=== PATIENT | male | born 1970 | race Caucasian/White ===

== ENCOUNTER 2024-11-07 10:52 | Day surgery (SDC) | payer OTHER ==
[~2024-11-07] VITALS: Ht 193 cm; Wt 174.3 kg
[2024-11-07] MEDS ORDERED: MIDAZolam 1mg/ml 10ml vial IV ONE (11:30)
[2024-11-07] MEDS ORDERED: fentaNYL/PF 50MCG/1 ML 2ML syringe IV ONE (11:30)
[2024-11-07] MEDS ORDERED: normal saline 1000ml 1,000 ML IV SCH (11:30)
[2024-11-07] MEDS ORDERED: APIX5TAB3 PO ×2 (11:32→11:33)
== END 2024-11-07 11:40 | disposition home or self-care (01) ==
LOC: SSTAY O 10:52
PROVIDERS: ATTEND Student in an Organized Health Care Education/Training Program
DX: I48.0 Paroxysmal atrial fibrillation (principal); I42.9 Cardiomyopathy, unspecified; N18.9 Chronic kidney disease, unspecified; F32.A Depression, unspecified; G47.33 Obstructive sleep apnea (adult) (pediatric); Z79.82 Long term (current) use of aspirin; Z86.73 Personal history of transient ischemic attack (TIA), and cerebral infarction without residual deficits; E11.22 Type 2 diabetes mellitus with diabetic chronic kidney disease; I12.9 Hypertensive chronic kidney disease with stage 1 through stage 4 chronic kidney disease, or unspecified chronic kidney disease; Z53.8 Procedure and treatment not carried out for other reasons
CPT/HCPCS: J7030

== ENCOUNTER 2025-01-09 09:26 | Day surgery (SDC) | payer OTHER ==
[2025-01-08 16:52] LABS: BASOPHILS # (AUTO) 0.1 X10'3 (0-0.2); BASOPHILS % (AUTO) 1.3 % (0-1); EOSINOPHILS # (AUTO) 0.4 X10'3 (0-0.9); EOSINOPHILS % (AUTO) 3.6 % (0-6); HEMATOCRIT 36.1 % (42.0-52.0); LYMPHOCYTES # (AUTO) 1.2 X10'3 (1.1-4.8); LYMPHOCYTES % (AUTO) 11.6 % (21-51); MEAN CORPUSCULAR HEMOGLOBIN 26.8 PG (27.0-31.0); MEAN CORPUSCULAR HGB CONC 33.2 g/dL (33.0-36.5); MEAN CORPUSCULAR VOLUME 80.6 FL (78-98); MEAN PLATELET VOLUME 7.5 FL (7.4-10.4); MONOCYTES # (AUTO) 0.6 X10'3 (0-0.9); NEUTROPHILS # (AUTO) 8.3 X10'3 (1.8-7.7); NEUTROPHILS % (AUTO) 77.5 % (42-75); PLATELET COUNT 192 X10'3 (140-440); RED BLOOD COUNT 4.48 X10'6 (4.70-6.10); RED CELL DISTRIBUTION WIDTH 18.6 % (11.5-14.5); WHITE BLOOD COUNT 10.7 X10'3 (4.5-11.0)
[2025-01-08 17:05] LABS: APTT 29 SECONDS (22-32); INR 1.1 INR
[2025-01-08 17:17] LABS: ALBUMIN 3.7 G/DL (3.4-5.0); ANION GAP 10 (8-16); BLOOD UREA NITROGEN 36 MG/DL (7-18); BUN/CREATININE RATIO 5.9 (10.0-20.0); CALCIUM 8.3 MG/DL (8.5-10.1); CHLORIDE 98 MMOL/L (99-107); CHOL/HDL RATIO 5.1 (0.00-4.99); CHOLESTEROL 162 MG/DL (0-200); CREATININE 6.11 MG/DL (0.60-1.10); GLUCOSE 136 MG/DL (70-104); HDL CHOLESTEROL 32 MG/DL (35-60); LDL CHOLESTEROL 89 MG/DL (50-100); POTASSIUM 3.3 MMOL/L (3.5-5.1); SODIUM 138 MMOL/L (135-145); TOTAL CARBON DIOXIDE 29.9 MMOL/L (24-32); TRIGLYCERIDES 337 MG/DL (20-135); eGFR 10 ML/MIN
[2025-01-08 17:45] LABS: ANISOCYTOSIS 2+; PLATELET ESTIMATE NORMAL
[2025-01-08 17:46] LABS: POIKILOCYTOSIS FEW; TEAR DROP CELLS FEW
[2025-01-09] VITALS (13 sets, daily range): BP systolic 106–134; BP diastolic 60–83; PULSE 71–103; RESP 14–20; TEMP 97.9; O2SAT 92–98
[~2025-01-09] VITALS: Ht 193 cm; Wt 169.6 kg
[~2025-01-09 09:26] MED LIST: APIX5TAB3 PO
[2025-01-09] MEDS ORDERED: PREG25CA19 PO (10:07)
[2025-01-09] MEDS ORDERED: SEVE800T28 PO (10:07)
[2025-01-09] MEDS: normal saline 1000ml 1,000 ML IV SCH (10:31)
[2025-01-09] MEDS: potassium Cl 20 mEq SR tablet PO STA (10:31)
[2025-01-09] MEDS: fentaNYL/PF 50MCG/1 ML 2ML syringe IV ONE (12:55)
[2025-01-09] MEDS: MIDAZolam 1mg/ml 10ml vial IV ONE (12:55)
--- NOTE | 2025-01-15 19:45 | CARDIOLOGY REPORT ---
DATE OF SERVICE: 01/09/2025 DICTATING PHYSICIAN: Ramin Saavedra MD CARDIOVERSION DATE OF STUDY: 01/09/2025 NAME OF STUDY: Electrical cardioversion. PROCEDURE: The patient was brought to cardiac short stay where he was prepped in the usual manner. After gradual increments of Versed and fentanyl, and conscious sedation was obtained, the patient was cardioverted. The patient remained clinically and hemodynamically stable throughout the procedure. IMPRESSION: Successful electrical cardioversion to normal sinus rhythm without complication. Ramin Saavedra MD TID: [id number] RECEIPT: [id number] KANDY/SHERRY
== END 2025-01-09 14:10 | disposition home or self-care (01) ==
LOC: SSTAY O 09:26
PROVIDERS: ATTEND Student in an Organized Health Care Education/Training Program
DX: I48.0 Paroxysmal atrial fibrillation (principal); I12.9 Hypertensive chronic kidney disease with stage 1 through stage 4 chronic kidney disease, or unspecified chronic kidney disease; N18.9 Chronic kidney disease, unspecified; I42.9 Cardiomyopathy, unspecified; F43.10 Post-traumatic stress disorder, unspecified; F32.A Depression, unspecified; G47.33 Obstructive sleep apnea (adult) (pediatric); Z86.73 Personal history of transient ischemic attack (TIA), and cerebral infarction without residual deficits; Z86.718 Personal history of other venous thrombosis and embolism; Z86.711 Personal history of pulmonary embolism; Z79.899 Other long term (current) drug therapy; Z98.890 Other specified postprocedural states
CPT/HCPCS: 36415; 80048; 80061; 85025; 85610; 85730; 92960; J2250; J3010; J7030; 85008